=== PATIENT | male | born 1965 | race Caucasian/White ===

== ENCOUNTER 2020-09-06 18:20 | Inpatient (IN) | payer OTHER ==
[~2020-09-06] VITALS: Ht 177.8 cm; Wt 82.6 kg
--- NOTE | 2020-09-06 18:20 | NUR ---
YINKA SANABRIA from home- c/o L sciatica pain, bilat ankle pain, R shoulder pain, bilat knee pain since . Pt reports seen at [facility] last week for same, diagnosed with UTI and hyperglycemia. Pt denies neuro defecits, able to stand and ambulate with assistance. Pt placed in gown, positioned for comfort in bed. Continuous oxygen and BP monitors applied, all safety measures observed.
[2020-09-06] MEDS ORDERED: ACETAMINOPHEN 500 MG TABLET PO ONE (19:00)
[2020-09-06] MEDS ORDERED: SODIUM CHLORIDE FLUSH 10ML SYR IVF ONE (19:00)
[2020-09-06] MEDS ORDERED: ONDANSETRON 2MG/ML, 2ML IVPush ONE ×2 (19:00→23:00)
--- NOTE | 2020-09-06 19:00 | NUR ---
patient not in room on first assessment. possibly in XR. will check back at a later time
[2020-09-06] MEDS ORDERED: NAPR-856 PO (19:01)
[2020-09-06] MEDS ORDERED: METF500T17 PO (19:01)
[2020-09-06] MEDS ORDERED: SULF1TAB23 PO (19:01)
--- NOTE | 2020-09-06 19:01 | NUR ---
Report to Mayuri ELLIS.
[2020-09-06] MEDS ORDERED: MORPHINE SULFATE 4 MG/ML, 1ML ONE ×3 (19:28→23:02)
[2020-09-06] MEDS ORDERED: ONDANSETRON 2MG/ML, 2ML ONE ×2 (19:28→23:02)
[2020-09-06] MEDS ORDERED: ACETAMINOPHEN 500 MG TABLET ONE (19:29)
[2020-09-06] MEDS: MORPHINE SULFATE 4 MG/ML, 1ML IVPush PRN ×2 (19:33→20:28)
--- NOTE | 2020-09-06 19:40 | NUR ---
iv MEDS AND TYLENOL ADMINISTERED. PATIENT NOW BEING TRANSFERRED TO CT
[2020-09-06 19:48] LABS: MEAN CORPUSCULAR HEMOGLOBIN 30.6 pg (27.5-34.5); MEAN PLATELET VOLUME 8.2 fL (7.4-10.4); PLATELET COUNT 246 x10^3/uL (130-400); RED BLOOD COUNT 4.02 x10^6/uL (4.38-5.82); RED CELL DISTRIBUTION WIDTH 14.4 % (9.4-14.8)
[2020-09-06 19:54] LABS: MD YES
--- NOTE | 2020-09-06 20:00 | NUR ---
patient has swelling with slight echymosis to R shoulder. this is very painful for patient and limited ROM d/t swelling and pain. + palpable pulse. patient states he was seen at [facility] recently for same symptoms he is coming in for today. he has a bandaid located below his R deltoid and I asked him if they gave him a shot at [facility] and he states "they did but i dont know what it was". Provider notified of shoulder swelling and she was in to see patient at this time to assess.
[2020-09-06 20:22] LABS: MICROSCOPIC NOT IND
[2020-09-06] MEDS ORDERED: PIPERACILLIN/TAZO/PMX 3.375GM 50 ML IV ONE (20:30)
[2020-09-06] MEDS ORDERED: VANCOMYCIN PER PHARMACY MC ONE (20:30)
[2020-09-06] MEDS ORDERED: PIPERACILLIN/TAZO/PMX 3.375GM 50 ML ONE (20:31)
--- NOTE | 2020-09-06 20:38 | NUR ---
patient transferred to MRI at this time. morphine given prior to transfer. VS remain stable. denies nausea
[2020-09-06 20:42] LABS: BAND#(MANUAL) 0.18 x10^3/uL; BANDS%(MANUAL) 1 % (0-7); LYMPH#(MANUAL) 2.45 x10^3/uL (1-3.4); LYMPHS% (MANUAL) 14 % (22-44); METAMYELOCYTES# (MANUAL) 0.18 x10^3/uL (0-0); METAMYELOCYTES% (MANUAL) 1 % (0-1); MONOS#(MANUAL) 0.35 x10^3/uL (0.3-2.7); MONOS% (MANUAL) 2 % (2-9); MYELOCYTES# (MANUAL) 0.35 x10^3/uL (0-0); MYELOCYTES% (MANUAL) 2 % (0-0); SEGS% (MANUAL) 80 % (42-75)
[2020-09-06 20:43] LABS: <PLATELET ESTIMATE> ADEQUATE; <PLT MORPHOLOGY> NORMAL PLT MORPH; <RBC MORPHOLOGY> NORMAL
[2020-09-06 20:44] LABS: PMNS WITH VACUOLES 1+
--- NOTE | 2020-09-06 20:45 | NUR ---
aware that patient was started on zosyn prior to going to MRI but vanco admin will be delayed d/t being in MRI
[2020-09-06 20:47] LABS: ALANINE AMINOTRANSFERASE 54 U/L (12-78); ALBUMIN 2.1 g/dL (3.4-5.0); ANION GAP 5 mmol/L (5-15); CALCIUM 8.1 mg/dL (8.5-10.1); CHLORIDE 104 mmol/L (98-107); CREATININE 0.94 mg/dL (0.7-1.3)
[2020-09-06 20:54] LABS: ALKALINE PHOSPHATASE 207 U/L (45-117); BILIRUBIN,TOTAL 0.4 mg/dL (0.2-1.0); TOTAL PROTEIN 7.1 g/dL (6.4-8.2)
[2020-09-06] MEDS ORDERED: VANCOMYCIN 2,000 MG in SODIUM CHLORIDE 0.9% 500 ML IV ONE (21:00)
[2020-09-06 21:02] LABS: C-REACTIVE PROTEIN, QUANT > 19.00 mg/dL (0.02-0.49)
--- NOTE | 2020-09-06 22:30 | NUR ---
patient returned from MRI. rates pain 10/10 L back. asking for food but RN informed patient that we need to wait for testing to result before we are able to give him PO fluids/food. patient states he understands. VS remain stable. in NAD. will continue to monitor. safety maintained. call taylor in reach
[2020-09-06] MEDS ORDERED: MORPHINE SULFATE 4 MG/ML, 1ML IVPush PRN (23:00)
[2020-09-06] MEDS ORDERED: SODIUM CHLORIDE 0.9% 1,000ML IVBOLUS ONE ×2 (23:00)
--- NOTE | 2020-09-06 23:17 | NUR ---
limited US performed by Dr. Souza. patient reporting 05/16 pain with passive ROM. IVF bolus's started for sepsis protocol. additional IV placed for these fluids. IV vanco infusing per order. VS remain stable. urinal provided. safety maintained. will continue to monitor. call taylor in reach Addendum: 09/06/20 at 2319 by ADOUGHTY limited US done on R shoulder
[2020-09-06 23:24] LABS: AMPHETAMINE SCREEN, URINE Positive (Negative); BARBITURATE SCREEN, URINE Negative (Negative); BENZODIAZEPINE SCREEN, URINE Negative (Negative); CANNABINOID SCREEN, URINE Negative (Negative); COCAINE SCREEN, URINE Negative (Negative); METHADONE SCREEN, URINE Negative (Negative); OPIATE SCREEN, URINE Positive (Negative)
--- NOTE | 2020-09-06 23:38 | NUR ---
IV vanco and IVF stopped for MRI. transferring to MRI at this time. provider aware. VS remain stable on RA
--- NOTE | 2020-09-07 00:19 | NUR ---
report given to dimas ELLIS for lunch relief
[2020-09-07] MEDS ORDERED: GADOTERATE 10 MMOL/20 ML VIAL ONE (00:35)
--- NOTE | 2020-09-07 00:59 | NUR ---
patient transferred back to ER at this time. Vanco and IVF bolus's reconnected and restarted. VS remain stable on RA. in NAD.safety maintained. will continue to monitor.
[2020-09-07] MEDS ORDERED: LIDOCAINE-MPF 2% ,5ML ONE (01:19)
--- NOTE | 2020-09-07 01:33 | NUR ---
MRI of R shoulder shows questionable abscess. I&D supplies at bedside with verbal request from PA for 10mL lido. patient resting in bed, snoring, with eyes closed. VS remain stable. will continue to monitor.
[2020-09-07] MEDS ORDERED: VANCOMYCIN PER PHARMACY MC PRN (02:00)
[2020-09-07] MEDS ORDERED: LABETALOL 5MG/ML, 20ML IVPush PRN (02:00)
[2020-09-07] MEDS ORDERED: SODIUM CHLORIDE 0.9% 1,000 ML IV SCH (02:00)
[2020-09-07] MEDS ORDERED: PROPOFOL 10 MG/ML, 20ML IVPush ONE ×3 (02:00→04:00)
[2020-09-07] MEDS ORDERED: PROPOFOL 10 MG/ML, 20ML ONE (02:11)
--- NOTE | 2020-09-07 02:32 | NUR ---
PATIENT OPTED FOR PROCEDURAL CONSCIOUS SEDATION FOR INCISION AND DRAINAGE OF RIGHT SHOULDER ABSCESS. IN NAD. VS REMAIN STABLE. NC W/ END TIDAL APPLIED TO PATIENT. SUCTION SET UP AT BEDSIDE. AMBU BAG IN ROOM. CODE CART OUTSIDE ROOM. IVF STARTED PER ORDER AND DR. SALAZAR REQUESTED 3 VIALS OF PROPOFOL AT BEDSIDE. WILL CONTINUE TO MONITOR Addendum: 09/07/20 at 0238 by ADOUGHTY patient placed on 2L via NC at this time
[2020-09-07] MEDS ORDERED: PIPERACILLIN/TAZO/PMX 3.375GM 50 ML ONE (02:49)
[2020-09-07] MEDS: PIPERACILLIN/TAZO/PMX 3.375GM 50 ML IV SCH ×3 (03:26→20:42)
--- NOTE | 2020-09-07 03:49 | NUR ---
procedural conscious sedation performed on this patient with Lucy LARSON and Dr. Souza at bedside with this RN. Patient placed on 6L via NC prior to start by provider. VS remained stable throughout procedure. incision made and pus/bloody fluid exited the site. packed with regular packing and DSD applied. no further drainage at this time. a total of 140mg of propofol administered by DR. Souza through 18g in RFA with IVF to gravity infusing. patient in NAD. back to baseline, able to answer questions, VS stable on RA and moving all extremities at [id number]. Patient asked questions about procedure. Will continue to monitor. safety maintained. call taylor in reach.
--- NOTE | 2020-09-07 03:55 | NUR ---
remainder of propofol wasted in appropriate container and witnessed by Hyacinth ELLIS.
[2020-09-07] MEDS ORDERED: HEPARIN 5,000 UNITS/ML, 1ML ONE (03:57)
--- NOTE | 2020-09-07 04:08 | NUR ---
report given to Og ELLIS on MS floor.
[2020-09-07] MEDS: HEPARIN 5,000 UNITS/ML, 1ML SQ SCH ×3 (04:11→16:45)
--- NOTE | 2020-09-07 04:40 | NUR ---
patient transferred to inpatient room by tech with telemetry monitor. all personal belongings with patient including cane, sneakers, jackets, cell phone, wallet, hat and clothing. in NAD. VS remain stable on RA prior to transfer. patient conversing with staff as well.
[2020-09-07 04:55] VITALS: BP 144/77
[2020-09-07] MEDS ORDERED: PHARMACOKINETIC MONITORING MC PRN (05:00)
[2020-09-07] MEDS ORDERED: PHARMACOKINETIC CONSULTATION MC ONE (05:00)
[2020-09-07] MEDS: morphine SULFATE 10 MG/ML, 1ML IVPush PRN ×4 (05:01→13:35)
[2020-09-07] MEDS ORDERED: INSULIN LISPRO 100 UNITS/ML, PEN SQ-INSULIN SCH (07:00)
[2020-09-07] MEDS: metFORMIN 500 MG TABLET PO SCH ×2 (07:33→20:42)
[2020-09-07] MEDS: INSULIN LISPRO 100 UNITS/ML, PEN SQ-INSULIN SCH ×4 (07:59→20:42)
[2020-09-07 08:15] VITALS: BP 144/73
[2020-09-07 09:35] LABS: BASOPHILS % (AUTO) 1 % (0-1); EOSINOPHILS % (AUTO) 1 % (1-7); LYMPHOCYTES % (AUTO) 9 % (22-44); MEAN CORPUSCULAR HEMOGLOBIN 30.2 pg (27.5-34.5); MEAN CORPUSCULAR HGB CONC 33.4 g/dL (33.2-36.2); MEAN PLATELET VOLUME 7.9 fL (7.4-10.4); MONOCYTES % (AUTO) 4 % (2-9); NEUTROPHILS % (AUTO) 85 % (42-75); PLATELET COUNT 239 x10^3/uL (130-400); RED BLOOD COUNT 3.96 x10^6/uL (4.38-5.82); RED CELL DISTRIBUTION WIDTH 14.5 % (9.4-14.8)
[2020-09-07 09:41] LABS: ALANINE AMINOTRANSFERASE 53 U/L (12-78); CALCIUM 8.2 mg/dL (8.5-10.1); CREATININE 0.69 mg/dL (0.7-1.3)
[2020-09-07 09:43] LABS: ALKALINE PHOSPHATASE 238 U/L (45-117); TOTAL PROTEIN 6.8 g/dL (6.4-8.2)
[2020-09-07] MEDS: VANCOMYCIN 1,800 MG in SODIUM CHLORIDE 0.9% 250 ML IV SCH ×2 (09:48→22:17)
[2020-09-07 10:07] LABS: ANION GAP 8 mmol/L (5-15); CHLORIDE 104 mmol/L (98-107)
[2020-09-07 10:24] LABS: MD SCAN
[2020-09-07] MEDS: SODIUM CHLORIDE 0.9% 1,000 ML IV SCH (11:30)
[2020-09-07 14:20] VITALS: BP 157/86
[2020-09-07 19:30] VITALS: BP 153/80
[2020-09-07] MEDS: ACETAMINOPHEN 325 MG TABLET PO PRN (19:35)
[2020-09-07] MEDS: DOCUSATE 100 MG CAPSULE PO PRN (20:42)
[2020-09-08 00:40] VITALS: BP 154/85
[2020-09-08] MEDS: SODIUM CHLORIDE 0.9% 1,000 ML IV SCH (00:40)
[2020-09-08] MEDS: ACETAMINOPHEN 325 MG TABLET PO PRN (00:43)
[2020-09-08] MEDS: PIPERACILLIN/TAZO/PMX 3.375GM 50 ML IV SCH ×3 (04:17→20:18)
[2020-09-08] MEDS: HEPARIN 5,000 UNITS/ML, 1ML SQ SCH ×3 (04:17→20:19)
[2020-09-08 04:58] LABS: BASOPHILS % (AUTO) 1 % (0-1); EOSINOPHILS % (AUTO) 1 % (1-7); LYMPHOCYTES % (AUTO) 15 % (22-44); MEAN CORPUSCULAR HEMOGLOBIN 30.1 pg (27.5-34.5); MEAN CORPUSCULAR HGB CONC 33.8 g/dL (33.2-36.2); MEAN PLATELET VOLUME 8.1 fL (7.4-10.4); MONOCYTES % (AUTO) 4 % (2-9); NEUTROPHILS % (AUTO) 80 % (42-75); PLATELET COUNT 266 x10^3/uL (130-400); RED BLOOD COUNT 4.12 x10^6/uL (4.38-5.82); RED CELL DISTRIBUTION WIDTH 14.7 % (9.4-14.8)
[2020-09-08 05:01] LABS: MD NO
[2020-09-08 05:07] LABS: ALANINE AMINOTRANSFERASE 42 U/L (12-78); ALBUMIN 1.9 g/dL (3.4-5.0); ANION GAP 5 mmol/L (5-15); CALCIUM 8.6 mg/dL (8.5-10.1); CHLORIDE 104 mmol/L (98-107); CREATININE 0.86 mg/dL (0.7-1.3)
[2020-09-08 05:13] LABS: ALKALINE PHOSPHATASE 234 U/L (45-117); BILIRUBIN,TOTAL 0.6 mg/dL (0.2-1.0); TOTAL PROTEIN 7.2 g/dL (6.4-8.2)
[2020-09-08 05:24] LABS: HCT (SEDRATE) 36.7 % (39.2-51.8)
[2020-09-08 07:00] VITALS: BP 158/88
[2020-09-08] MEDS: INSULIN LISPRO 100 UNITS/ML, PEN SQ-INSULIN SCH ×4 (07:00→20:19)
[2020-09-08] MEDS: metFORMIN 500 MG TABLET PO SCH ×2 (09:24→20:19)
[2020-09-08] MEDS: VANCOMYCIN 1,800 MG in SODIUM CHLORIDE 0.9% 250 ML IV SCH (09:24)
[2020-09-08] MEDS: DOCUSATE 100 MG CAPSULE PO PRN (09:53)
[2020-09-08 13:18] VITALS: BP 164/98
[2020-09-08] MEDS ORDERED: LIDOCAINE 1%, 10ML ONE (14:08)
[2020-09-08 19:07] VITALS: BP 158/90
[2020-09-08] MEDS: morphine SULFATE 10 MG/ML, 1ML IVPush PRN (19:47)
[2020-09-08] MEDS: VANCOMYCIN 1,900 MG in SODIUM CHLORIDE 0.9% 250 ML IV SCH (22:05)
[2020-09-09 00:28] VITALS: BP 169/90
[2020-09-09] MEDS: PIPERACILLIN/TAZO/PMX 3.375GM 50 ML IV SCH (04:13)
[2020-09-09] MEDS: HEPARIN 5,000 UNITS/ML, 1ML SQ SCH ×3 (04:13→20:00)
[2020-09-09] MEDS: morphine SULFATE 10 MG/ML, 1ML IVPush PRN (04:19)
[2020-09-09 05:11] LABS: BASOPHILS % (AUTO) 0 % (0-1); EOSINOPHILS % (AUTO) 1 % (1-7); LYMPHOCYTES % (AUTO) 13 % (22-44); MEAN CORPUSCULAR HEMOGLOBIN 30.6 pg (27.5-34.5); MEAN CORPUSCULAR HGB CONC 34.7 g/dL (33.2-36.2); MEAN PLATELET VOLUME 7.7 fL (7.4-10.4); MONOCYTES % (AUTO) 4 % (2-9); NEUTROPHILS % (AUTO) 83 % (42-75); PLATELET COUNT 283 x10^3/uL (130-400); RED BLOOD COUNT 4.19 x10^6/uL (4.38-5.82); RED CELL DISTRIBUTION WIDTH 14.3 % (9.4-14.8)
[2020-09-09 05:13] LABS: MD NO
[2020-09-09 07:14] VITALS: BP 131/85
[2020-09-09] MEDS: metFORMIN 500 MG TABLET PO SCH ×2 (08:46→17:04)
[2020-09-09] MEDS: INSULIN LISPRO 100 UNITS/ML, PEN SQ-INSULIN SCH ×4 (08:53→21:00)
[2020-09-09] MEDS: VANCOMYCIN 1,900 MG in SODIUM CHLORIDE 0.9% 250 ML IV SCH (10:52)
[2020-09-09] MEDS: CEFAZOLIN PMX 2GM/50ML 50 ML IVPB SCH ×2 (13:01→20:00)
[2020-09-09 13:08] VITALS: BP 143/88
[2020-09-09 19:05] VITALS: BP 153/98
[2020-09-09] MEDS: OXYcodone IR 5MG TABLET PO PRN (23:18)
[2020-09-10 02:17] VITALS: BP 155/88
[2020-09-10] MEDS: CEFAZOLIN PMX 2GM/50ML 50 ML IVPB SCH ×3 (03:00→19:36)
[2020-09-10] MEDS: HEPARIN 5,000 UNITS/ML, 1ML SQ SCH ×3 (05:10→20:06)
[2020-09-10 05:28] LABS: ANION GAP 8 mmol/L (5-15); CHLORIDE 103 mmol/L (98-107)
[2020-09-10 05:30] LABS: CREATININE 0.71 mg/dL (0.7-1.3)
[2020-09-10 05:31] LABS: BASOPHILS % (AUTO) 0 % (0-1); EOSINOPHILS % (AUTO) 1 % (1-7); LYMPHOCYTES % (AUTO) 13 % (22-44); MEAN CORPUSCULAR HEMOGLOBIN 30.7 pg (27.5-34.5); MEAN CORPUSCULAR HGB CONC 34.4 g/dL (33.2-36.2); MEAN PLATELET VOLUME 7.7 fL (7.4-10.4); MONOCYTES % (AUTO) 3 % (2-9); NEUTROPHILS % (AUTO) 83 % (42-75); PLATELET COUNT 340 x10^3/uL (130-400); RED BLOOD COUNT 4.26 x10^6/uL (4.38-5.82); RED CELL DISTRIBUTION WIDTH 14.1 % (9.4-14.8)
[2020-09-10 05:34] LABS: MD NO
[2020-09-10 06:53] VITALS: BP 133/72
[2020-09-10] MEDS: INSULIN LISPRO 100 UNITS/ML, PEN SQ-INSULIN SCH ×4 (07:00→21:00)
[2020-09-10] MEDS: metFORMIN 500 MG TABLET PO SCH ×2 (07:47→16:06)
[2020-09-10] MEDS: OXYcodone IR 5MG TABLET PO PRN ×2 (10:17→20:12)
[2020-09-10 12:10] VITALS: BP 131/86
[2020-09-10 18:58] VITALS: BP 139/83
[2020-09-11 01:02] VITALS: BP 134/75
[2020-09-11] MEDS: CEFAZOLIN PMX 2GM/50ML 50 ML IVPB SCH ×3 (03:28→19:10)
[2020-09-11] MEDS: OXYcodone IR 5MG TABLET PO PRN ×2 (03:31→21:00)
[2020-09-11] MEDS: HEPARIN 5,000 UNITS/ML, 1ML SQ SCH ×3 (06:16→20:46)
[2020-09-11] MEDS: INSULIN LISPRO 100 UNITS/ML, PEN SQ-INSULIN SCH ×4 (07:00→20:47)
[2020-09-11 07:01] VITALS: BP 118/72
[2020-09-11] MEDS: metFORMIN 500 MG TABLET PO SCH ×2 (07:39→16:05)
[2020-09-11] MEDS: morphine SULFATE 10 MG/ML, 1ML IVPush PRN ×2 (10:46→22:06)
[2020-09-11 14:35] VITALS: BP 129/70
[2020-09-11 20:20] VITALS: BP 135/79
[2020-09-12 02:14] VITALS: BP 127/74
[2020-09-12] MEDS: CEFAZOLIN PMX 2GM/50ML 50 ML IVPB SCH ×3 (03:26→19:16)
[2020-09-12 05:02] LABS: BASOPHILS % (AUTO) 1 % (0-1); EOSINOPHILS % (AUTO) 1 % (1-7); LYMPHOCYTES % (AUTO) 14 % (22-44); MEAN CORPUSCULAR HEMOGLOBIN 30.5 pg (27.5-34.5); MEAN CORPUSCULAR HGB CONC 34.1 g/dL (33.2-36.2); MEAN PLATELET VOLUME 7.3 fL (7.4-10.4); MONOCYTES % (AUTO) 5 % (2-9); NEUTROPHILS % (AUTO) 80 % (42-75); PLATELET COUNT 374 x10^3/uL (130-400); RED BLOOD COUNT 4.22 x10^6/uL (4.38-5.82)
[2020-09-12 05:05] LABS: MD NO
[2020-09-12] MEDS: HEPARIN 5,000 UNITS/ML, 1ML SQ SCH ×3 (06:38→21:36)
[2020-09-12] MEDS: OXYcodone IR 5MG TABLET PO PRN ×2 (06:44→21:38)
[2020-09-12] MEDS: INSULIN LISPRO 100 UNITS/ML, PEN SQ-INSULIN SCH ×2 (07:00→11:00)
[2020-09-12] MEDS: metFORMIN 500 MG TABLET PO SCH ×2 (07:10→17:01)
[2020-09-12 07:13] VITALS: BP 128/76
[2020-09-12] MEDS: morphine SULFATE 10 MG/ML, 1ML IVPush PRN (09:31)
[2020-09-12 13:33] VITALS: BP 131/75
[2020-09-12 19:17] VITALS: BP 121/75
[2020-09-13 02:16] VITALS: BP 135/71
[2020-09-13] MEDS: CEFAZOLIN PMX 2GM/50ML 50 ML IVPB SCH ×3 (03:30→17:55)
[2020-09-13] MEDS: HEPARIN 5,000 UNITS/ML, 1ML SQ SCH ×3 (04:54→20:41)
[2020-09-13 06:25] VITALS: BP 117/67
[2020-09-13 06:31] LABS: BASOPHILS % (AUTO) 1 % (0-1); EOSINOPHILS % (AUTO) 1 % (1-7); LYMPHOCYTES % (AUTO) 15 % (22-44); MD NO; MEAN CORPUSCULAR HEMOGLOBIN 31.2 pg (27.5-34.5); MEAN CORPUSCULAR HGB CONC 35.1 g/dL (33.2-36.2); MEAN PLATELET VOLUME 7.6 fL (7.4-10.4); MONOCYTES % (AUTO) 6 % (2-9); NEUTROPHILS % (AUTO) 78 % (42-75); PLATELET COUNT 385 x10^3/uL (130-400); RED BLOOD COUNT 4.24 x10^6/uL (4.38-5.82); RED CELL DISTRIBUTION WIDTH 13.8 % (9.4-14.8)
[2020-09-13] MEDS: metFORMIN 500 MG TABLET PO SCH ×2 (08:04→17:54)
[2020-09-13] MEDS: morphine SULFATE 10 MG/ML, 1ML IVPush PRN (09:59)
[2020-09-13 12:16] VITALS: BP 132/73
[2020-09-13] MEDS: OXYcodone IR 5MG TABLET PO PRN ×2 (12:36→18:26)
[2020-09-13] MEDS: ACETAMINOPHEN 325 MG TABLET PO PRN ×2 (17:54→22:34)
[2020-09-13 18:28] VITALS: BP 129/74
[2020-09-13] MEDS ORDERED: GADOTERATE 10 MMOL/20ML SYR ONE (19:37)
[2020-09-14 01:47] VITALS: BP 130/73
[2020-09-14] MEDS: CEFAZOLIN PMX 2GM/50ML 50 ML IVPB SCH ×3 (01:50→17:46)
[2020-09-14] MEDS: OXYcodone IR 5MG TABLET PO PRN ×3 (01:50→20:58)
[2020-09-14] MEDS: HEPARIN 5,000 UNITS/ML, 1ML SQ SCH ×3 (04:27→20:58)
[2020-09-14 05:14] LABS: BASOPHILS % (AUTO) 1 % (0-1); EOSINOPHILS % (AUTO) 1 % (1-7); LYMPHOCYTES % (AUTO) 18 % (22-44); MEAN CORPUSCULAR HEMOGLOBIN 30.8 pg (27.5-34.5); MEAN CORPUSCULAR HGB CONC 34.2 g/dL (33.2-36.2); MEAN PLATELET VOLUME 7.6 fL (7.4-10.4); MONOCYTES % (AUTO) 6 % (2-9); NEUTROPHILS % (AUTO) 75 % (42-75); PLATELET COUNT 405 x10^3/uL (130-400); RED BLOOD COUNT 4.15 x10^6/uL (4.38-5.82); RED CELL DISTRIBUTION WIDTH 13.7 % (9.4-14.8)
[2020-09-14 05:16] LABS: HCT (SEDRATE) 37.3 % (39.2-51.8)
[2020-09-14 05:19] LABS: MD NO
[2020-09-14 05:22] LABS: ALBUMIN 2.4 g/dL (3.4-5.0); ANION GAP 6 mmol/L (5-15); CALCIUM 9.2 mg/dL (8.5-10.1); CHLORIDE 102 mmol/L (98-107)
[2020-09-14 05:30] LABS: ALANINE AMINOTRANSFERASE 165 U/L (12-78); ALKALINE PHOSPHATASE 200 U/L (45-117); BILIRUBIN,TOTAL 0.5 mg/dL (0.2-1.0); CREATININE 0.85 mg/dL (0.7-1.3); TOTAL PROTEIN 8.8 g/dL (6.4-8.2)
[2020-09-14 06:52] VITALS: BP 132/75
[2020-09-14] MEDS: metFORMIN 500 MG TABLET PO SCH ×2 (08:45→17:45)
[2020-09-14] MEDS: morphine SULFATE 10 MG/ML, 1ML IVPush PRN (10:36)
[2020-09-14 13:39] VITALS: BP 124/78
[2020-09-14 18:31] VITALS: BP 154/77
[2020-09-15 00:26] VITALS: BP 125/73
[2020-09-15] MEDS: CEFAZOLIN PMX 2GM/50ML 50 ML IVPB SCH ×2 (01:52→10:03)
[2020-09-15] MEDS: HEPARIN 5,000 UNITS/ML, 1ML SQ SCH ×3 (05:23→20:43)
[2020-09-15 05:47] LABS: CHLORIDE 101 mmol/L (98-107)
[2020-09-15 05:56] LABS: ALANINE AMINOTRANSFERASE 139 U/L (12-78); ALBUMIN 2.5 g/dL (3.4-5.0); ALKALINE PHOSPHATASE 186 U/L (45-117); ANION GAP 5 mmol/L (5-15); BILIRUBIN,TOTAL 0.5 mg/dL (0.2-1.0); CALCIUM 9.5 mg/dL (8.5-10.1); CREATININE 0.83 mg/dL (0.7-1.3); TOTAL PROTEIN 8.9 g/dL (6.4-8.2)
[2020-09-15] MEDS: OXYcodone IR 5MG TABLET PO PRN ×3 (07:12→20:42)
[2020-09-15] MEDS: metFORMIN 500 MG TABLET PO SCH ×2 (07:12→17:09)
[2020-09-15 07:40] VITALS: BP 145/84
[2020-09-15] MEDS: AMPICILLIN/SULBACTAM 3 GM in SODIUM CHLORIDE 0.9% 100 ML IV SCH ×2 (13:03→18:42)
[2020-09-15] MEDS: IBUPROFEN 200 MG TABLET PO PRN ×2 (13:10→20:41)
[2020-09-15 13:37] VITALS: BP 137/81
[2020-09-15 19:13] VITALS: BP 126/74
[2020-09-16 00:27] VITALS: BP 131/79
[2020-09-16] MEDS: AMPICILLIN/SULBACTAM 3 GM in SODIUM CHLORIDE 0.9% 100 ML IV SCH ×4 (01:49→20:23)
[2020-09-16 05:04] LABS: BASOPHILS % (AUTO) 2 % (0-1); EOSINOPHILS % (AUTO) 1 % (1-7); LYMPHOCYTES % (AUTO) 23 % (22-44); MD NO; MEAN CORPUSCULAR HEMOGLOBIN 30.5 pg (27.5-34.5); MEAN CORPUSCULAR HGB CONC 33.9 g/dL (33.2-36.2); MEAN PLATELET VOLUME 7.4 fL (7.4-10.4); MONOCYTES % (AUTO) 8 % (2-9); NEUTROPHILS % (AUTO) 67 % (42-75); PLATELET COUNT 378 x10^3/uL (130-400); RED CELL DISTRIBUTION WIDTH 13.4 % (9.4-14.8)
[2020-09-16 05:13] LABS: ALBUMIN 2.3 g/dL (3.4-5.0); ANION GAP 5 mmol/L (5-15); CALCIUM 9.2 mg/dL (8.5-10.1); CHLORIDE 102 mmol/L (98-107)
[2020-09-16 05:17] LABS: ALANINE AMINOTRANSFERASE 137 U/L (12-78); ALKALINE PHOSPHATASE 167 U/L (45-117); BILIRUBIN,TOTAL 0.5 mg/dL (0.2-1.0); CREATININE 0.82 mg/dL (0.7-1.3); TOTAL PROTEIN 8.7 g/dL (6.4-8.2)
[2020-09-16] MEDS: HEPARIN 5,000 UNITS/ML, 1ML SQ SCH ×3 (05:20→20:24)
[2020-09-16] MEDS: IBUPROFEN 200 MG TABLET PO PRN (05:20)
[2020-09-16] MEDS: OXYcodone IR 5MG TABLET PO PRN ×2 (05:22→20:27)
[2020-09-16 07:17] VITALS: BP 100/60
[2020-09-16] MEDS: metFORMIN 500 MG TABLET PO SCH ×2 (07:51→17:44)
[2020-09-16] MEDS ORDERED: EPHEDRINE 50 MG/ML, 1ML IVPush PRN (08:00)
[2020-09-16] MEDS ORDERED: LABETALOL 5MG/ML, 20ML IV PRN (08:00)
[2020-09-16] MEDS ORDERED: FENTANYL PF 100 MCG/2ML IV PRN (08:00)
[2020-09-16] MEDS ORDERED: ONDANSETRON 2MG/ML, 2ML IVPush PRN (08:00)
[2020-09-16] MEDS ORDERED: PROMETHAZINE 25 MG/ML, 1ML IVPush PRN (08:00)
[2020-09-16] MEDS ORDERED: hydrALAzine 20 MG/ML, 1ML IV PRN (08:00)
[2020-09-16] MEDS ORDERED: OXYcodone 5 MG/5 ML ORAL.SOL UDC PO PRN (08:00)
[2020-09-16] MEDS ORDERED: HYDROmorphone 1 MG/ML, 1ML INJ IVPush PRN (08:00)
[2020-09-16] MEDS ORDERED: CHLORHEXIDINE 15 ML UDC ONE (11:13)
[2020-09-16] MEDS ORDERED: CHLORHEXIDINE 15 ML UDC MM ONE (11:13)
[2020-09-16] MEDS ORDERED: MIDAZOLAM 1 MG/ML, 2ML ONE (11:45)
[2020-09-16] MEDS ORDERED: FENTANYL PF 100 MCG/2ML ONE ×2 (11:45→12:15)
[2020-09-16] MEDS ORDERED: LIDOCAINE-MPF 2% ,5ML ONE (11:47)
[2020-09-16] MEDS ORDERED: PROPOFOL 10 MG/ML, 20ML ONE (11:47)
[2020-09-16] MEDS ORDERED: KETOROLAC 30 MG/1 ML ONE (12:05)
[2020-09-16] MEDS ORDERED: DEXAMETHASONE 4 MG/ML, 1ML ONE ×2 (12:05)
[2020-09-16 14:03] VITALS: BP 108/70
[2020-09-16 19:01] VITALS: BP 122/74
[2020-09-17 00:48] VITALS: BP 114/69
[2020-09-17] MEDS: AMPICILLIN/SULBACTAM 3 GM in SODIUM CHLORIDE 0.9% 100 ML IV SCH ×4 (02:33→20:02)
[2020-09-17] MEDS: HEPARIN 5,000 UNITS/ML, 1ML SQ SCH ×3 (05:19→20:02)
[2020-09-17 06:47] VITALS: BP 127/80
[2020-09-17] MEDS: metFORMIN 500 MG TABLET PO SCH ×2 (08:19→17:15)
[2020-09-17] MEDS: OXYcodone IR 5MG TABLET PO PRN ×2 (11:03→17:18)
[2020-09-17 12:58] VITALS: BP 129/72
[2020-09-17] MEDS: IBUPROFEN 200 MG TABLET PO PRN (20:06)
[2020-09-17 20:32] VITALS: BP 133/73
[2020-09-18 01:49] VITALS: BP 134/77
[2020-09-18] MEDS: AMPICILLIN/SULBACTAM 3 GM in SODIUM CHLORIDE 0.9% 100 ML IV SCH ×2 (02:42→08:49)
[2020-09-18] MEDS: OXYcodone IR 5MG TABLET PO PRN ×2 (02:48→08:49)
[2020-09-18] MEDS: HEPARIN 5,000 UNITS/ML, 1ML SQ SCH (04:56)
[2020-09-18 07:02] VITALS: BP 122/68
[2020-09-18] MEDS: metFORMIN 500 MG TABLET PO SCH (08:46)
[2020-09-18] MEDS ORDERED: ACET325T26 PO (09:55)
[2020-09-18] MEDS ORDERED: OXYC5TAB98 PO (09:55)
[2020-09-18] MEDS ORDERED: HEPA50002 SQ (09:55)
[2020-09-18] MEDS ORDERED: METF500T PO (09:55)
[2020-09-18] MEDS ORDERED: IBUP-1902 PO (09:55)
[2020-09-18] MEDS ORDERED: AMPI3VIA IV (09:55)
[2020-09-18 12:28] VITALS: BP 123/69
== END 2020-09-18 13:09 | DRG 854 ==
LOC: EDBD 18:20 → ED 23:38 → EDIP 09-07 02:05 → 3N 09-07 04:41
PROVIDERS: ADMIT Family Medicine; ATTEND Hospitalist
PROC: 0KD50ZZ Extraction of Right Shoulder Muscle, Open Approach (ICD-10-PCS; principal; 2020-09-16 12:00)
DX: A41.9 Sepsis, unspecified organism (principal); E87.1 Hypo-osmolality and hyponatremia; L02.413 Cutaneous abscess of right upper limb; L03.113 Cellulitis of right upper limb; M00.811 Arthritis due to other bacteria, right shoulder; M86.8X2 Other osteomyelitis, upper arm; E11.69 Type 2 diabetes mellitus with other specified complication; Z20.822 Contact with and (suspected) exposure to COVID-19; E11.65 Type 2 diabetes mellitus with hyperglycemia; R74.01 Elevation of levels of liver transaminase levels; R74.8 Abnormal levels of other serum enzymes; B95.0 Streptococcus, group A, as the cause of diseases classified elsewhere; F15.10 Other stimulant abuse, uncomplicated; M19.011 Primary osteoarthritis, right shoulder; M51.36 Other intervertebral disc degeneration, lumbar region; Z87.891 Personal history of nicotine dependence; Z90.49 Acquired absence of other specified parts of digestive tract; Z79.899 Other long term (current) drug therapy
CPT/HCPCS: 10030; 36415; 72110; 73030; 73502; 84145; 87806; 99285; A9575; J3490; 71045; 72131; 72157; 72158; 75989; 76705; 76937; 80048; 80053; 80074; 80202; 80307; 81003; 82962; 83036; 83605; 85025; 85651; 86140; 86592; 87015; 87040; 87070; 87075; 87102; 87116; 87147; 87205; 87206; 87635; 93005; G0378; J0295; J0690; J1100; J1644; J1885; J2250; J2405; J2543; J2704; J3010; J3370; G0475; J1815; J2270; J7030; J7040; J7050